=== PATIENT | male | born 1960 | race African-American/Black ===

== ENCOUNTER 2020-10-18 14:52 | Inpatient (IN) | payer OTHER ==
[2020-10-18 19:07] VITALS: BMI 23.8
[2020-10-18] MEDS ORDERED: ACETAMINOPHEN 325 MG TABLET (FP) PO PRN (21:26)
[2020-10-18] MEDS ORDERED: MAGNESIUM CITRATE 300 ML BOTTLE PO PRN (21:26)
[2020-10-18] MEDS ORDERED: MAG HYDROX/AL HYDROX/SIMETH 30 ML UNIT-DOSE CUP PO PRN (21:26)
[2020-10-18] MEDS ORDERED: MAGNESIUM HYDROX 2400MG/30ML ORAL SUSPENSION 30 ML CUP PO PRN (21:26)
[2020-10-18] MEDS ORDERED: IBUPROFEN 400 MG TABLET (FP) PO PRN (21:26)
[2020-10-18] MEDS ORDERED: NICOTINE POLACRILEX 2 MG GUM BC PRN (21:26)
[2020-10-18] MEDS ORDERED: LOPERAMIDE HCL 2 MG CAPSULE PO PRN (21:26)
[2020-10-18] MEDS ORDERED: P-EPHED 60MG/TRIPROLIDI 2.5MG TABLET PO PRN (21:26)
[2020-10-18] MEDS ORDERED: guaiFENesin 200 MG/10 ML 10 ML UNIT-DOSE CUPS PO PRN (21:26)
[2020-10-18] MEDS ORDERED: TUBERCULIN PPD 5 TU/0.1ML VIAL ID ONE (23:33)
[2020-10-18] MEDS: amLODIPine BESYLATE 10 MG TABLET (FP) PO SCH (23:36)
[2020-10-18] MEDS: hydrOXYzine PAMOATE 25 MG CAPSULE (FP) PO SCH (23:36)
[2020-10-18] MEDS: MELATONIN 5 MG TABLETS PO SCH (23:37)
[2020-10-18] MEDS: THIAMINE HCL 100 MG TABLET (FP) PO SCH (23:37)
[2020-10-18] MEDS: NICOTINE 7 MG/24 HOURS TOPICAL PATCH TD SCH (23:38)
[2020-10-18] MEDS: PRENATAL VITAMINS W/ FOLIC ACID TABLET (FP) PO SCH (23:38)
[2020-10-19] MEDS: hydrOXYzine PAMOATE 25 MG CAPSULE (FP) PO SCH ×3 (06:23→13:11)
[2020-10-19] MEDS: PRENATAL VITAMINS W/ FOLIC ACID TABLET (FP) PO SCH (09:35)
[2020-10-19] MEDS: amLODIPine BESYLATE 10 MG TABLET (FP) PO SCH (09:35)
[2020-10-19] MEDS: NICOTINE 7 MG/24 HOURS TOPICAL PATCH TD SCH (09:37)
[2020-10-19 11:07] LABS: HEMOGLOBIN 13.8 GM/dL (11.7-16.9); MCH 32.7 pg (25.7-33.7); MCHC 34.5 g/dl (32.0-35.9); MEAN CELL VOLUME 94.8 fl (80-96); MEAN PLT VOLUME 7.8 fl (7.5-11.1); PLATELET COUNT 225 10^3/uL (134-434); RBC 4.22 M/mm3 (4.00-5.60); RDW 14.9 % (11.9-15.9); WHITE BLOOD COUNT 5.4 K/mm3 (4.0-10.0)
[2020-10-19 11:24] LABS: ALBUMIN 3.4 g/dl (3.4-5.0); BLOOD UREA NITROGEN 19.8 mg/dL (7-18); CALCIUM 8.7 mg/dL (8.5-10.1)
[2020-10-19 11:28] LABS: CREATININE 1.3 mg/dL (0.55-1.3)
[2020-10-19 11:29] LABS: BILIRUBIN,TOTAL 0.7 mg/dL (0.2-1); TOT PROT 6.3 g/dl (6.4-8.2)
[2020-10-19] MEDS: MELATONIN 5 MG TABLETS PO SCH (21:39)
[2020-10-19] MEDS: THIAMINE HCL 100 MG TABLET (FP) PO SCH (21:39)
[2020-10-20] MEDS ORDERED: PT OWN MED DRAWER 7, Y5N ONE (08:32)
[2020-10-20] MEDS: NICOTINE 7 MG/24 HOURS TOPICAL PATCH TD SCH (09:14)
[2020-10-20] MEDS: PRENATAL VITAMINS W/ FOLIC ACID TABLET (FP) PO SCH (09:14)
[2020-10-20] MEDS: amLODIPine BESYLATE 10 MG TABLET (FP) PO SCH (09:15)
[2020-10-20 11:03] LABS: EPI CELLS 7 /uL (0-25.1); HYALINE CASTS 1 /uL (0-3.1); URINE APPEARANCE CLEAR; URINE BACTERIA 8 /uL (0-1359); URINE BILIRUBIN NEGATIVE (NEGATIVE); URINE COLOR YELLOW; URINE GLUCOSE (UA) NEGATIVE (NEGATIVE); URINE KETONE NEGATIVE (NEGATIVE); URINE LEUK ESTERASE 1+ (NEGATIVE); URINE NITRITE NEGATIVE (NEGATIVE); URINE PROTEIN NEGATIVE (NEGATIVE); URINE RBC 2 /uL (0-23.9); URINE UROBILINOGEN 0.2 mg/dL (0.2-1.0); URINE WBC 133 /uL (0-25.8)
[2020-10-20] MEDS: THIAMINE HCL 100 MG TABLET (FP) PO SCH (21:28)
[2020-10-20] MEDS: MELATONIN 5 MG TABLETS PO SCH (21:28)
[2020-10-21] MEDS: amLODIPine BESYLATE 10 MG TABLET (FP) PO SCH (09:36)
[2020-10-21] MEDS: PRENATAL VITAMINS W/ FOLIC ACID TABLET (FP) PO SCH (09:36)
[2020-10-21] MEDS: NICOTINE 7 MG/24 HOURS TOPICAL PATCH TD SCH (09:36)
[2020-10-21] MEDS: MELATONIN 5 MG TABLETS PO SCH (21:25)
[2020-10-21] MEDS: THIAMINE HCL 100 MG TABLET (FP) PO SCH (21:25)
[2020-10-22] MEDS: PRENATAL VITAMINS W/ FOLIC ACID TABLET (FP) PO SCH (10:19)
[2020-10-22] MEDS: NICOTINE 7 MG/24 HOURS TOPICAL PATCH TD SCH (10:20)
[2020-10-22] MEDS: amLODIPine BESYLATE 10 MG TABLET (FP) PO SCH (10:20)
[2020-10-22] MEDS: THIAMINE HCL 100 MG TABLET (FP) PO SCH (21:17)
[2020-10-22] MEDS: MELATONIN 5 MG TABLETS PO SCH (21:17)
[2020-10-23] MEDS: PRENATAL VITAMINS W/ FOLIC ACID TABLET (FP) PO SCH (09:56)
[2020-10-23] MEDS: hydrOXYzine PAMOATE 25 MG CAPSULE (FP) PO PRN ×2 (09:56→21:25)
[2020-10-23] MEDS: amLODIPine BESYLATE 10 MG TABLET (FP) PO SCH (09:56)
[2020-10-23] MEDS: NICOTINE 7 MG/24 HOURS TOPICAL PATCH TD SCH (09:56)
[2020-10-23] MEDS: MELATONIN 5 MG TABLETS PO SCH (21:25)
[2020-10-23] MEDS: THIAMINE HCL 100 MG TABLET (FP) PO SCH (21:25)
[2020-10-24] MEDS: NICOTINE 7 MG/24 HOURS TOPICAL PATCH TD SCH (10:03)
[2020-10-24] MEDS: PRENATAL VITAMINS W/ FOLIC ACID TABLET (FP) PO SCH (10:03)
[2020-10-24] MEDS: amLODIPine BESYLATE 10 MG TABLET (FP) PO SCH (10:03)
[2020-10-24] MEDS: hydrOXYzine PAMOATE 25 MG CAPSULE (FP) PO PRN (10:03)
[2020-10-24] MEDS: MELATONIN 5 MG TABLETS PO SCH (21:09)
[2020-10-24] MEDS: THIAMINE HCL 100 MG TABLET (FP) PO SCH (21:09)
[2020-10-25] MEDS: PRENATAL VITAMINS W/ FOLIC ACID TABLET (FP) PO SCH (10:37)
[2020-10-25] MEDS: amLODIPine BESYLATE 10 MG TABLET (FP) PO SCH (10:37)
[2020-10-25] MEDS: NICOTINE 7 MG/24 HOURS TOPICAL PATCH TD SCH (10:38)
[2020-10-25] MEDS: THIAMINE HCL 100 MG TABLET (FP) PO SCH (21:23)
[2020-10-25] MEDS: MELATONIN 5 MG TABLETS PO SCH (21:23)
[2020-10-26] MEDS: amLODIPine BESYLATE 10 MG TABLET (FP) PO SCH (09:58)
[2020-10-26] MEDS: PRENATAL VITAMINS W/ FOLIC ACID TABLET (FP) PO SCH (09:58)
[2020-10-26] MEDS: NICOTINE 7 MG/24 HOURS TOPICAL PATCH TD SCH (09:58)
[2020-10-26] MEDS: NALTREXONE HCL 50 MG TABLET PO SCH (12:31)
[2020-10-26] MEDS: THIAMINE HCL 100 MG TABLET (FP) PO SCH (21:02)
[2020-10-26] MEDS: MELATONIN 5 MG TABLETS PO SCH (21:02)
[2020-10-27] MEDS: amLODIPine BESYLATE 10 MG TABLET (FP) PO SCH (10:05)
[2020-10-27] MEDS: PRENATAL VITAMINS W/ FOLIC ACID TABLET (FP) PO SCH (10:05)
[2020-10-27] MEDS: NALTREXONE HCL 50 MG TABLET PO SCH (10:05)
[2020-10-27] MEDS: NICOTINE 7 MG/24 HOURS TOPICAL PATCH TD SCH (10:48)
[2020-10-27] MEDS: THIAMINE HCL 100 MG TABLET (FP) PO SCH (21:32)
[2020-10-27] MEDS: MELATONIN 5 MG TABLETS PO SCH (21:32)
[2020-10-28] MEDS: NALTREXONE HCL 50 MG TABLET PO SCH (10:17)
[2020-10-28] MEDS: PRENATAL VITAMINS W/ FOLIC ACID TABLET (FP) PO SCH (10:17)
[2020-10-28] MEDS: amLODIPine BESYLATE 10 MG TABLET (FP) PO SCH (10:17)
[2020-10-28] MEDS: NICOTINE 7 MG/24 HOURS TOPICAL PATCH TD SCH (10:55)
[2020-10-28] MEDS ORDERED: ONDANSETRON *ODT* 4 MG TABLET SL PRN (12:08)
[2020-10-28] MEDS: NICOTINE 10 MG CARTRIDGE (INHALER) IH PRN ×2 (14:07→23:07)
[2020-10-28] MEDS: THIAMINE HCL 100 MG TABLET (FP) PO SCH (21:20)
[2020-10-28] MEDS: MELATONIN 5 MG TABLETS PO SCH (21:20)
[2020-10-29] MEDS: amLODIPine BESYLATE 10 MG TABLET (FP) PO SCH (10:13)
[2020-10-29] MEDS: NICOTINE 10 MG CARTRIDGE (INHALER) IH PRN ×2 (10:13→19:27)
[2020-10-29] MEDS: NICOTINE 7 MG/24 HOURS TOPICAL PATCH TD SCH (10:13)
[2020-10-29] MEDS: PRENATAL VITAMINS W/ FOLIC ACID TABLET (FP) PO SCH (10:13)
[2020-10-29] MEDS: NALTREXONE HCL 50 MG TABLET PO SCH (10:13)
[2020-10-29] MEDS: THIAMINE HCL 100 MG TABLET (FP) PO SCH (21:23)
[2020-10-29] MEDS: MELATONIN 5 MG TABLETS PO SCH (21:23)
[2020-10-30] MEDS: NICOTINE 10 MG CARTRIDGE (INHALER) IH PRN ×3 (07:02→22:44)
[2020-10-30] MEDS: PRENATAL VITAMINS W/ FOLIC ACID TABLET (FP) PO SCH (10:05)
[2020-10-30] MEDS: NALTREXONE HCL 50 MG TABLET PO SCH (10:05)
[2020-10-30] MEDS: NICOTINE 7 MG/24 HOURS TOPICAL PATCH TD SCH (10:05)
[2020-10-30] MEDS: amLODIPine BESYLATE 10 MG TABLET (FP) PO SCH (10:05)
[2020-10-30] MEDS: THIAMINE HCL 100 MG TABLET (FP) PO SCH (21:12)
[2020-10-30] MEDS: MELATONIN 5 MG TABLETS PO SCH (21:12)
[2020-10-31] MEDS: NICOTINE 10 MG CARTRIDGE (INHALER) IH PRN ×3 (06:45→21:27)
[2020-10-31] MEDS: PRENATAL VITAMINS W/ FOLIC ACID TABLET (FP) PO SCH (10:44)
[2020-10-31] MEDS: NALTREXONE HCL 50 MG TABLET PO SCH (10:44)
[2020-10-31] MEDS: amLODIPine BESYLATE 10 MG TABLET (FP) PO SCH (10:44)
[2020-10-31] MEDS: NICOTINE 7 MG/24 HOURS TOPICAL PATCH TD SCH (10:46)
[2020-10-31] MEDS ORDERED: ARTIFICIAL TEARS (POLYVINYL ALCOHOL) OPTH DROPS OU PRN (10:53)
[2020-10-31] MEDS: MELATONIN 5 MG TABLETS PO SCH (21:27)
[2020-10-31] MEDS: THIAMINE HCL 100 MG TABLET (FP) PO SCH (21:27)
[2020-11-01 07:01] VITALS: TEMP 97.2
[2020-11-01] MEDS ORDERED: PT OWN MED DRAWER 7, Y5N ONE (09:27)
[2020-11-01] MEDS: NALTREXONE HCL 50 MG TABLET PO SCH (09:55)
[2020-11-01] MEDS: amLODIPine BESYLATE 10 MG TABLET (FP) PO SCH (09:55)
[2020-11-01] MEDS: NICOTINE 7 MG/24 HOURS TOPICAL PATCH TD SCH (09:55)
[2020-11-01] MEDS: NICOTINE 10 MG CARTRIDGE (INHALER) IH PRN ×2 (09:55→15:40)
[2020-11-01] MEDS: PRENATAL VITAMINS W/ FOLIC ACID TABLET (FP) PO SCH (09:55)
[2020-11-01] MEDS: MELATONIN 5 MG TABLETS PO SCH (21:18)
[2020-11-01] MEDS: hydrOXYzine PAMOATE 25 MG CAPSULE (FP) PO PRN (21:18)
[2020-11-01] MEDS: THIAMINE HCL 100 MG TABLET (FP) PO SCH (21:18)
[2020-11-02] MEDS: PRENATAL VITAMINS W/ FOLIC ACID TABLET (FP) PO SCH (10:06)
[2020-11-02] MEDS: amLODIPine BESYLATE 10 MG TABLET (FP) PO SCH (10:06)
[2020-11-02] MEDS: NALTREXONE HCL 50 MG TABLET PO SCH (10:06)
[2020-11-02] MEDS: NICOTINE 7 MG/24 HOURS TOPICAL PATCH TD SCH (10:06)
[2020-11-02] MEDS: NICOTINE 10 MG CARTRIDGE (INHALER) IH PRN ×3 (10:07→23:05)
[2020-11-02] MEDS: THIAMINE HCL 100 MG TABLET (FP) PO SCH (21:10)
[2020-11-02] MEDS: MELATONIN 5 MG TABLETS PO SCH (21:11)
[2020-11-03 07:08] VITALS: BP 147/99; PULSE 77
[2020-11-03] MEDS: NICOTINE 10 MG CARTRIDGE (INHALER) IH PRN (08:53)
[2020-11-03] MEDS: NALTREXONE HCL 50 MG TABLET PO SCH (09:35)
[2020-11-03] MEDS: NICOTINE 7 MG/24 HOURS TOPICAL PATCH TD SCH (09:35)
[2020-11-03] MEDS: amLODIPine BESYLATE 10 MG TABLET (FP) PO SCH (09:35)
[2020-11-03] MEDS: PRENATAL VITAMINS W/ FOLIC ACID TABLET (FP) PO SCH (09:35)
== END 2020-11-03 09:48 | disposition home or self-care (01) | DRG 772 ==
LOC: YASAS 14:52 → Y3E 21:06 → Y3W 10-20 14:08
PROVIDERS: ADMIT Allergy & Immunology; ATTEND Allergy & Immunology
PROC: HZ42ZZZ Group Counseling for Substance Abuse Treatment, Cognitive-Behavioral (ICD-10-PCS; principal; 2020-10-18)
DX: F10.20 Alcohol dependence, uncomplicated (principal); F14.20 Cocaine dependence, uncomplicated; F12.20 Cannabis dependence, uncomplicated; F17.210 Nicotine dependence, cigarettes, uncomplicated; F41.8 Other specified anxiety disorders; I10 Essential (primary) hypertension
CPT/HCPCS: 36415; 80053; 81003; 85027; 86780; 86803; C9803; U0003; U0005

== ENCOUNTER 2021-03-14 11:17 | Inpatient (IN) | payer OTHER ==
[2021-03-14] MEDS ORDERED: MAGNESIUM CITRATE 300 ML BOTTLE PO PRN (11:40)
[2021-03-14] MEDS ORDERED: MAG HYDROX/AL HYDROX/SIMETH 30 ML UNIT-DOSE CUP PO PRN (11:40)
[2021-03-14] MEDS ORDERED: IBUPROFEN 400 MG TABLET (FP) PO PRN (11:40)
[2021-03-14] MEDS ORDERED: MAGNESIUM HYDROX 2400MG/30ML ORAL SUSPENSION 30 ML CUP PO PRN (11:40)
[2021-03-14] MEDS ORDERED: guaiFENesin 200 MG/10 ML 10 ML UNIT-DOSE CUPS PO PRN (11:40)
[2021-03-14] MEDS ORDERED: P-EPHED 60MG/TRIPROLIDI 2.5MG TABLET PO PRN (11:40)
[2021-03-14] MEDS ORDERED: ACETAMINOPHEN 325 MG TABLET (FP) PO PRN (11:40)
[2021-03-14] MEDS ORDERED: LOPERAMIDE HCL 2 MG CAPSULE PO PRN (11:40)
[2021-03-14 12:29] VITALS: BMI 23.6
[2021-03-14 17:30] LABS: HEMATOCRIT 38.7 % (35.4-49); HEMOGLOBIN 12.8 GM/dL (11.7-16.9); MCH 31.2 pg (25.7-33.7); MCHC 32.9 g/dl (32.0-35.9); MEAN CELL VOLUME 94.9 fl (80-96); MEAN PLT VOLUME 7.8 fl (7.5-11.1); PLATELET COUNT 262 10^3/uL (134-434); RBC 4.08 M/mm3 (4.00-5.60); WHITE BLOOD COUNT 5.9 K/mm3 (4.0-10.0)
[2021-03-14 18:00] LABS: ALBUMIN 3.4 g/dl (3.4-5.0); BLOOD UREA NITROGEN 21.6 mg/dL (7-18); CALCIUM 8.8 mg/dL (8.5-10.1)
[2021-03-14 18:02] LABS: CREATININE 1.3 mg/dL (0.55-1.3)
[2021-03-14 18:04] LABS: BILIRUBIN,TOTAL 0.4 mg/dL (0.2-1); TOT PROT 6.7 g/dl (6.4-8.2)
[2021-03-14] MEDS: hydrOXYzine PAMOATE 25 MG CAPSULE (FP) PO SCH ×3 (20:18→21:05)
[2021-03-14] MEDS: PRENATAL VITAMINS W/ FOLIC ACID TABLET (FP) PO SCH (20:19)
[2021-03-14] MEDS: MELATONIN 5 MG TABLETS PO SCH (21:05)
[2021-03-14] MEDS: THIAMINE HCL 100 MG TABLET (FP) PO SCH (21:05)
[2021-03-14] MEDS: NICOTINE 10 MG CARTRIDGE (INHALER) IH PRN (21:06)
[2021-03-15] MEDS: hydrOXYzine PAMOATE 25 MG CAPSULE (FP) PO SCH ×5 (06:29→21:11)
[2021-03-15] MEDS: PRENATAL VITAMINS W/ FOLIC ACID TABLET (FP) PO SCH (09:58)
[2021-03-15 10:27] LABS: EPI CELLS 3 /uL (0-25.1); HYALINE CASTS 61 /uL (0-3.1); PH,URINE 5.5 (5.0-8.0); URINE APPEARANCE CLEAR; URINE BACTERIA 17 /uL (0-1359); URINE BILIRUBIN NEGATIVE (NEGATIVE); URINE COLOR YELLOW; URINE GLUCOSE (UA) NEGATIVE (NEGATIVE); URINE KETONE TRACE (NEGATIVE); URINE LEUK ESTERASE 1+ (NEGATIVE); URINE NITRITE NEGATIVE (NEGATIVE); URINE PROTEIN TRACE (NEGATIVE); URINE RBC 11 /uL (0-23.9); URINE UROBILINOGEN 0.2 mg/dL (0.2-1.0); URINE WBC 757 /uL (0-25.8)
[2021-03-15 15:47] LABS: SYPHILIS W/ RPR CONF NON-REACTIVE (NONREACTIVE)
[2021-03-15 15:56] LABS: HIV INTERPRETATION NEGATIVE (NEGATIVE)
[2021-03-15] MEDS: THIAMINE HCL 100 MG TABLET (FP) PO SCH (21:11)
[2021-03-15] MEDS: MELATONIN 5 MG TABLETS PO SCH (21:11)
[2021-03-16] MEDS: hydrOXYzine PAMOATE 25 MG CAPSULE (FP) PO SCH ×5 (06:25→21:42)
[2021-03-16] MEDS: PRENATAL VITAMINS W/ FOLIC ACID TABLET (FP) PO SCH (09:40)
[2021-03-16 14:47] LABS: EPI CELLS 8 /uL (0-25.1); HYALINE CASTS 1 /uL (0-3.1); PH,URINE 6.5 (5.0-8.0); URINE APPEARANCE CLEAR; URINE BACTERIA 32 /uL (0-1359); URINE BILIRUBIN NEGATIVE (NEGATIVE); URINE COLOR YELLOW; URINE GLUCOSE (UA) NEGATIVE (NEGATIVE); URINE KETONE NEGATIVE (NEGATIVE); URINE LEUK ESTERASE TRACE (NEGATIVE); URINE NITRITE NEGATIVE (NEGATIVE); URINE PROTEIN NEGATIVE (NEGATIVE); URINE RBC 1 /uL (0-23.9); URINE UROBILINOGEN 0.2 mg/dL (0.2-1.0); URINE WBC 15 /uL (0-25.8)
[2021-03-16] MEDS: MELATONIN 5 MG TABLETS PO SCH (21:42)
[2021-03-16] MEDS: THIAMINE HCL 100 MG TABLET (FP) PO SCH (21:42)
[2021-03-17] MEDS: hydrOXYzine PAMOATE 25 MG CAPSULE (FP) PO SCH ×5 (05:43→21:26)
[2021-03-17] MEDS: PRENATAL VITAMINS W/ FOLIC ACID TABLET (FP) PO SCH (10:09)
[2021-03-17] MEDS: NICOTINE 10 MG CARTRIDGE (INHALER) IH PRN (17:56)
[2021-03-17] MEDS: THIAMINE HCL 100 MG TABLET (FP) PO SCH (21:26)
[2021-03-17] MEDS: MELATONIN 5 MG TABLETS PO SCH (21:27)
[2021-03-18] MEDS: hydrOXYzine PAMOATE 25 MG CAPSULE (FP) PO SCH ×5 (06:55→21:14)
[2021-03-18] MEDS: NICOTINE 10 MG CARTRIDGE (INHALER) IH PRN (09:42)
[2021-03-18] MEDS: PRENATAL VITAMINS W/ FOLIC ACID TABLET (FP) PO SCH (09:42)
[2021-03-18] MEDS: THIAMINE HCL 100 MG TABLET (FP) PO SCH (21:14)
[2021-03-18] MEDS: MELATONIN 5 MG TABLETS PO SCH (21:14)
[2021-03-19] MEDS: hydrOXYzine PAMOATE 25 MG CAPSULE (FP) PO SCH ×5 (07:07→21:08)
[2021-03-19] MEDS: PRENATAL VITAMINS W/ FOLIC ACID TABLET (FP) PO SCH (09:50)
[2021-03-19] MEDS: THIAMINE HCL 100 MG TABLET (FP) PO SCH (21:08)
[2021-03-19] MEDS: MELATONIN 5 MG TABLETS PO SCH (21:08)
[2021-03-19] MEDS: NICOTINE 10 MG CARTRIDGE (INHALER) IH PRN (21:09)
[2021-03-20] MEDS: hydrOXYzine PAMOATE 25 MG CAPSULE (FP) PO SCH ×5 (06:12→21:06)
[2021-03-20] MEDS: PRENATAL VITAMINS W/ FOLIC ACID TABLET (FP) PO SCH (11:07)
[2021-03-20] MEDS: MELATONIN 5 MG TABLETS PO SCH (21:05)
[2021-03-20] MEDS: THIAMINE HCL 100 MG TABLET (FP) PO SCH (21:06)
[2021-03-21] MEDS: hydrOXYzine PAMOATE 25 MG CAPSULE (FP) PO SCH ×5 (07:05→21:11)
[2021-03-21] MEDS: PRENATAL VITAMINS W/ FOLIC ACID TABLET (FP) PO SCH (09:32)
[2021-03-21] MEDS: THIAMINE HCL 100 MG TABLET (FP) PO SCH (21:11)
[2021-03-21] MEDS: MELATONIN 5 MG TABLETS PO SCH (21:12)
[2021-03-21] MEDS: NICOTINE 10 MG CARTRIDGE (INHALER) IH PRN (21:13)
[2021-03-22] MEDS: hydrOXYzine PAMOATE 25 MG CAPSULE (FP) PO SCH ×5 (06:03→21:42)
[2021-03-22] MEDS: PRENATAL VITAMINS W/ FOLIC ACID TABLET (FP) PO SCH (09:43)
[2021-03-22] MEDS: MELATONIN 5 MG TABLETS PO SCH (21:42)
[2021-03-22] MEDS: THIAMINE HCL 100 MG TABLET (FP) PO SCH (21:42)
[2021-03-23] MEDS: hydrOXYzine PAMOATE 25 MG CAPSULE (FP) PO SCH ×2 (06:26→10:39)
[2021-03-23] MEDS: PRENATAL VITAMINS W/ FOLIC ACID TABLET (FP) PO SCH (10:39)
[2021-03-23] MEDS: hydrOXYzine PAMOATE 25 MG CAPSULE (FP) PO PRN (21:50)
[2021-03-23] MEDS: THIAMINE HCL 100 MG TABLET (FP) PO SCH (21:50)
[2021-03-23] MEDS: MELATONIN 5 MG TABLETS PO SCH (21:50)
[2021-03-24] MEDS ORDERED: cloNIDine HCL 0.1 MG TABLET PO ONE ×3 (07:37→23:45)
[2021-03-24] MEDS: PRENATAL VITAMINS W/ FOLIC ACID TABLET (FP) PO SCH (10:31)
[2021-03-24] MEDS: NALTREXONE HCL 50 MG TABLET PO SCH (15:48)
[2021-03-24] MEDS: MELATONIN 5 MG TABLETS PO SCH (21:23)
[2021-03-24] MEDS: THIAMINE HCL 100 MG TABLET (FP) PO SCH (21:23)
[2021-03-24] MEDS: NICOTINE 10 MG CARTRIDGE (INHALER) IH PRN (21:24)
[2021-03-24] MEDS: hydrOXYzine PAMOATE 25 MG CAPSULE (FP) PO PRN (21:24)
[2021-03-25] MEDS: NALTREXONE HCL 50 MG TABLET PO SCH (10:32)
[2021-03-25] MEDS: amLODIPine BESYLATE 10 MG TABLET (FP) PO SCH (10:32)
[2021-03-25] MEDS: PRENATAL VITAMINS W/ FOLIC ACID TABLET (FP) PO SCH (10:32)
[2021-03-25] MEDS: THIAMINE HCL 100 MG TABLET (FP) PO SCH (21:29)
[2021-03-25] MEDS: hydrOXYzine PAMOATE 25 MG CAPSULE (FP) PO PRN (21:29)
[2021-03-25] MEDS: MELATONIN 5 MG TABLETS PO SCH (21:29)
[2021-03-25] MEDS: NICOTINE 10 MG CARTRIDGE (INHALER) IH PRN (21:31)
[2021-03-26] MEDS: NALTREXONE HCL 50 MG TABLET PO SCH (09:58)
[2021-03-26] MEDS: PRENATAL VITAMINS W/ FOLIC ACID TABLET (FP) PO SCH (09:58)
[2021-03-26] MEDS: amLODIPine BESYLATE 10 MG TABLET (FP) PO SCH (09:58)
[2021-03-26] MEDS: MELATONIN 5 MG TABLETS PO SCH (21:50)
[2021-03-26] MEDS: THIAMINE HCL 100 MG TABLET (FP) PO SCH (21:51)
[2021-03-26] MEDS: hydrOXYzine PAMOATE 25 MG CAPSULE (FP) PO PRN (21:51)
[2021-03-27] MEDS: NALTREXONE HCL 50 MG TABLET PO SCH (10:15)
[2021-03-27] MEDS: amLODIPine BESYLATE 10 MG TABLET (FP) PO SCH (10:15)
[2021-03-27] MEDS: PRENATAL VITAMINS W/ FOLIC ACID TABLET (FP) PO SCH (10:15)
[2021-03-27] MEDS: MELATONIN 5 MG TABLETS PO SCH (21:39)
[2021-03-27] MEDS: THIAMINE HCL 100 MG TABLET (FP) PO SCH (21:39)
[2021-03-28 07:24] VITALS: TEMP 97.3
[2021-03-28] MEDS: amLODIPine BESYLATE 10 MG TABLET (FP) PO SCH (09:15)
[2021-03-28] MEDS: NALTREXONE HCL 50 MG TABLET PO SCH (09:33)
[2021-03-28] MEDS: PRENATAL VITAMINS W/ FOLIC ACID TABLET (FP) PO SCH (09:33)
[2021-03-28 11:11] VITALS: BP 136/89; PULSE 94
== END 2021-03-28 10:10 | disposition home or self-care (01) | DRG 772 ==
LOC: YASAS 11:17 → Y3W 19:10 → Y5N 03-17 13:41
PROVIDERS: ADMIT Allergy & Immunology; ATTEND Allergy & Immunology
PROC: HZ42ZZZ Group Counseling for Substance Abuse Treatment, Cognitive-Behavioral (ICD-10-PCS; principal; 2021-03-14)
DX: F10.20 Alcohol dependence, uncomplicated (principal); F14.20 Cocaine dependence, uncomplicated; F12.20 Cannabis dependence, uncomplicated; F17.210 Nicotine dependence, cigarettes, uncomplicated; F41.8 Other specified anxiety disorders; F32.A Depression, unspecified; I10 Essential (primary) hypertension; R73.9 Hyperglycemia, unspecified; R82.998 Other abnormal findings in urine
CPT/HCPCS: 36415; 80053; 81003; 82962; 85027; 86780; 86803; 87389; C9803; J0735; U0003; U0005